=== PATIENT | female | born 1990 | race Caucasian/White ===

== ENCOUNTER 2016-11-19 16:00 | Inpatient (IN) | payer OTHER ==
[~2016-11-19] VITALS: Ht 177.8 cm; Wt 93.9 kg
--- NOTE | ~2016-11-19 | FD ---
ADMIT: 11/19/2016 RM/LOC: 227 [facility] MR#: [id number] [address] [address] [address] [place] [address] Final Diagnosis SEX: F AGE: 26 : 1990 ADMISSION DATE: 11/19/2016 DISCHARGE DATE: 11/21/2016 FINAL DIAGNOSIS: 1. Intrauterine at 40 weeks and 3 days gestation. 2. Hypothyroidism. 3. Rh ([place]hes[place]) negative. PROCEDURE: Spontaneous vaginal delivery. Homa Jackson MD Resident / Anna Thayer MD / margaret JOB #: [id number] CC: Anna Thayer MD, Attending Physician Anna Thayer MD, Family Physician
[2016-11-22] MEDS ORDERED: PRENATAL VIT1 TAB PO (20:06)
[2016-11-22] MEDS ORDERED: MOTRIN-DPS800 MG PO (20:07)
[2016-11-22] MEDS ORDERED: SYNTHROID DP0.075 MG PO (20:07)
[2016-11-22] MEDS ORDERED: NIPPLECREAM TP (20:07)
--- NOTE | 2016-12-21 08:59 | OR ---
ADMIT: 11/19/2016 RM/LOC: 227 [facility] MR#: [id number] [address] [address] [address] [place] [address] Operative/Delivery Room Report SEX: F AGE: 26 : 1990 SURGERY DATE: 11/20/2016 SURGEON: Bertha Sanders MD PROCEDURE: Removal of epidural catheter. PROCEDURE IN DETAIL: The patient is a 26-year-old female, who had epidural placed for pain control during labor. After delivery, the patient was placed in the sitting position and the epidural catheter was removed without difficulty and blue tip was noted to be intact. The patient tolerated the procedure well. Bertha Sanders MD/ nataliial JOB #: [id number] CC: Anna Thayer, Attending Physician Anna Thayer, Family Physician
--- NOTE | 2016-12-21 08:59 | HP ---
ADMIT: 11/19/2016 RM/LOC: 227 [facility] MR#: [id number] [address] [address] [address]IE [address]ADYEVERARDO [address] [place] [address] History and Physical SEX: F AGE: 26 : 1990 DATE OF SERVICE: REASON FOR ADMISSION: Contractions. HISTORY OF PRESENT ILLNESS: The patient is a 26-year-old, 1, para 0, who presented to Labor and Delivery at 40 and 3/7th weeks' gestation by ultrasound. Estimated date of confinement 11/16/2016. The patient's had been complicated by Rh negative status, rubella nonimmune, and hypothyroidism. At the time of admission, the patient was noted be flora regularly and had cervical change and was admitted in active labor. LABORATORY DATA: Blood type A negative, antibody screen negative, RPR nonreactive, rubella nonimmune, group B Strep negative, HIV negative, gonorrhea and chlamydia negative, and hepatitis B surface antigen negative. PAST MEDICAL HISTORY: Hypothyroidism. PAST SURGICAL HISTORY: None. CURRENT MEDICATIONS: 1. Levothyroxine 75 mcg daily. 2. vitamins daily. ALLERGIES: NO KNOWN MEDICAL ALLERGIES. FAMILY HISTORY: Maternal grandfather with cancer. SOCIAL HISTORY: The patient is . She denies any alcohol, tobacco, or drug use. PHYSICAL EXAMINATION: VITAL SIGNS: On admission, blood pressure 132/82, pulse 77, temp 98.5, respirations 18. GENERAL: The patient is alert and oriented, no acute distress. HEART: Regular rate and rhythm without murmurs, gallops, or rubs. LUNGS: Clear to auscultation bilaterally. ABDOMEN: Soft, nontender. Gravid. EXTREMITIES: 1+ edema. No calf tenderness. ADMIT: 11/19/2016 RM/LOC: 227 [facility] MR#: [id number] [id number] [address] [address]YRONE GRADYShiraz Mcn[address] [place] [address] History and Physical SEX: F AGE: 26 : 1990 heart tones are in the 130s with moderate variability and accelerations present. Contractions every 3 to 4 minutes. Cervix 3 cm dilated, 75% effaced, and -2 station. ASSESSMENT AND PLAN: 1. A 26-year-old, 1, para 0, at 40 and 3/7th weeks' gestation. 2. Active labor. Plan to admit in Labor and anticipate spontaneous vaginal delivery. 3. Hypothyroidism. 4. Rh negative. 5. Rubella, nonimmune. We will give MMR if indicated . Bertha Sanders MD/ alicia JOB #: [id number] CC: Anna Thayer, Attending Physician Anna Thayer, Family Physician
--- NOTE | 2016-12-21 08:59 | OR ---
ADMIT: 11/19/2016 RM/LOC: 227 [facility] MR#: [id number] [id number] [place], [place] [id number] [address] [place] [address] Operative/Delivery Room Report SEX: F AGE: 26 : 1990 SURGERY DATE: 11/20/2016 SURGEON: Bertha Sanders MD PROCEDURE: Spontaneous vaginal delivery. PREOPERATIVE DIAGNOSES: 1. Intrauterine at 40 and 4/7th weeks' gestation. 2. Rh negative. 3. Hypothyroidism. POSTOP DIAGNOSES: 1. Intrauterine at 40 and 4/7th weeks' gestation. 2. Rh negative. 3. Hypothyroidism. FINDINGS: Liveborn female , scores 8 at 1 minute, 9 at 5 minutes. Weight 8 pounds 6 ounces. ESTIMATED BLOOD LOSS: 150 mL. ANESTHESIA: Epidural. COMPLICATIONS: None. INDICATIONS FOR PROCEDURE: The patient is a 26-year-old, 1, para 0, who presented to Labor and Delivery at 40 and 4/7th weeks' gestation with complaints of painful contractions. The patient was noted to be flora regularly with cervical change on admission and was admitted in active labor. The patient progressed spontaneously through labor to completely dilated. She pushed bringing the infant's vertex to the perineum. PROCEDURE IN DETAIL: The patient was noted to be complete and pushing with the infant's vertex at the perineum. The patient pushed and the 's ADMIT: 11/19/2016 RM/LOC: 227 [facility] MR#: [id number] [address] [place] [id number] [address] [place] [address] Operative/Delivery Room Report SEX: F AGE: 26 : 1990 vertex delivered in the JOHANNA position over midline. She continued to push. The anterior shoulder delivered, the posterior shoulder following, the remainder of the infant delivered without difficulty as well. The infant was dried and handed off to the mother's abdomen where nursing personnel were in attendance. Twenty units of Pitocin were placed in IV bag to firm the uterus. The cord was then clamped and cut. The placenta then delivered intact spontaneously. The cervix was examined and was noted to be free of lacerations. The vaginal vault and perineum were examined and perineum was noted be intact. There was noted to be a separation of the right labia minora which was brought together using a subcuticular stitch of 3-0 Vicryl. The patient tolerated the procedure well. All sponge and needle counts were correct. The patient and her recovered in stable condition. Bertha Sanders MD/ alicia JOB #: [id number] CC: Anna Thayer, Attending Physician Anna Thayer, Family Physician
== END 2016-11-21 15:40 | disposition home or self-care (01) | DRG 775 ==
LOC: BC 16:00 → 2LDRP 16:00
PROVIDERS: ADMIT Obstetrics & Gynecology
DX: O48.0 Post-term pregnancy (principal); O99.284 Endocrine, nutritional and metabolic diseases complicating childbirth; E03.9 Hypothyroidism, unspecified; O75.89 Other specified complications of labor and delivery; O70.0 First degree perineal laceration during delivery; Z23 Encounter for immunization; Z3A.40 40 weeks gestation of pregnancy; Z37.0 Single live birth